=== PATIENT | female | born 1970 | race Caucasian/White ===

== ENCOUNTER 2021-04-14 04:17 | Emergency (ER) | payer BC ==
--- NOTE | 2021-04-14 04:43 | ERPHSYRPT ---
- History of Present Illness Time Seen by Provider: 04/14/21 04:42 Source: patient Exam Limitations: no limitations Physician History: The patient is a 51-year-old female the past medical tree significant for hypertension presents with a chief complaint of syncope. Onset reportedly was just prior to arrival to the emergency department. She reportedly is visiting from out of [facility], specifically [place], and is taking care of her mother who was just discharged from the hospital after being admitted for bowel obstruction. She reportedly was awoke abruptly tonight to help her mother go to the bathroom. She states that when she stood up out of bed she felt "hot" and as if it was over 100 degrees and then briefly lost consciousness. She came to and when she did she heard feeling of her screaming and she tried to stand up and briefly lost consciousness again. She is currently A&O x3 and just complains of a minor headache, specifically with pain behind the orbits. She also complained of some nausea. She denies any injury from the fall, chest pain, shortness of breath, history of DVT or PE, or any recent immobilization fever chills and she is not concerned for a COVID-19 infection. There is no report of vomiting or diarrhea. She contemplated whether to undergo work-up to include a head CT which I recommended to rule out intracranial hemorrhage/subarachnoid hemorrhage given that she is out of network and did not want to pay [id number] for ED bill but eventually decided to go forward with her work-up. Timing/Duration: today Associated Symptoms: nausea, syncope, No vomiting, No abdominal pain, No short ness of breath, No diaphoresis, No cough, No chest pain, No fever, No loss of appetite, No seizure, No weakness Allergies/Adverse Reactions: tramadol [From [facility]] Adverse Reaction (Verified 04/14/21 04:27) Home Medications: Lisinopril 10 mg [Zestril 10 MG] 10 mg PO DAILY 04/14/21 [History] - Review of Systems Constitutional: No Fever, No Chills Abdominal/Gastrointestinal: Nausea, No Vomiting, No Constipation Genitourinary Symptoms: No Dysuria, No Frequency, No Hematuria Neurological: Headache Psychological: No Symptoms Endocrine: No Symptoms All Other Systems: Reviewed and Negative - Nursing Vital Signs Nursing Vital Signs: Initial Vital Signs Temperature 98.1 F 04/14/21 04:17 Pulse Rate 94 H 04/14/21 04:17 Respiratory Rate 18 04/14/21 04:17 Blood Pressure 118/84 04/14/21 04:17 O2 Sat by Pulse Oximetry 99 04/14/21 04:17 Pain Scale Pain Intensity 1 - Physical Exam General Appearance: no apparent distress, alert Eye Exam: PERRL/EOMI, eyes nml inspection, No scleral icterus, No pale conjunctivae, No EOM palsy/anisocoria Ears, Nose, Throat Exam: normal ENT inspection, other (No evidence of tongue trauma) Neck Exam: normal inspection, non-tender, supple Respiratory Exam: normal breath sounds, lungs clear, airway intact, No chest tenderness, No respiratory distress, No diminished breath sounds, No accessory muscle use Cardiovascular Exam: regular rate/rhythm, normal heart sounds, normal peripheral pulses, capillary refill <2 sec, No murmur, No friction rub, No gallop, No edema Gastrointestinal/Abdomen Exam: soft, No tenderness, No distention, No mass, No guarding Pelvic Exam: not done Rectal Exam: deferred Back Exam: normal inspection Extremity Exam: normal inspection, No pedal edema, No tenderness Neurologic Exam: alert, oriented x 3, cooperative, normal mood/affect Skin Exam: normal color, warm, dry, No rash, No petechiae, No jaundice SpO2 Interpretation: normal O2 Delivery: Room Air - Course Nursing assessment & vital signs reviewed: Yes EKG Interpreted by Me: RATE, NORMAL AXIS, NORMAL INTERVALS, NORMAL QRS, Other (No evidence of acute myocardial ischemia or injury pattern. No evidence of preexcitation, Brugada, WPW or HOCM) - Radiology Exams Chest X-ray Interpretation: Interpreted by me, Reviewed by me, Negative (No evidence of acute cardiopulmonary process. Currently waiting formal radiology review.) - CT Exams Head CT Interpretation: Negative, Tele-radiologist Report Ordered Tests: Active Orders 24 hr Category Date Time Status EKG-ER Only STAT Care 04/14/21 04:48 Active IV Insertion STAT Care 04/14/21 04:48 Active CHEST 2 VIEWS (PA AND LAT) Stat Exams 04/14/21 06:07 Taken HEAD WITHOUT CONTRAST [CT] Stat Exams 04/14/21 04:49 Taken BMP Stat Lab 04/14/21 05:10 Completed CBC W DIFF Stat Lab 04/14/21 05:10 Completed TROPONIN Q3H Lab 04/14/21 05:10 Completed TROPONIN Q3H Lab 04/14/21 08:00 Ordered TROPONIN Q3H Lab 04/14/21 11:00 Ordered TROPONIN Q3H Lab 04/14/21 14:00 Ordered TROPONIN Q3H Lab 04/14/21 17:00 Ordered UA W/RFX UR CULTURE Stat Lab 04/14/21 04:48 Ordered Lab/Rad Data: Laboratory Result Diagrams 04/14/21 05:10 04/14/21 05:10 Laboratory Results 04/14/21 04/14/21 04/14/21 Range/Units 05:10 05:10 05:10 WBC 7.4 (4.0-10.5) K/mm3 RBC 4.52 (4.1-5.4) M/mm3 Hgb 13.6 (12.0-16.0) gm/dl Hct 42.4 (35-47) % MCV 93.8 (78-100) fl MCH 30.1 (26-32) pg MCHC 32.1 (32-36) g/dl RDW 13.3 (11.5-14.0) % Plt Count 302 (150-450) K/mm3 MPV 9.1 (7.5-11.0) fl Gran % 57.6 (36.0-66.0) % Eos # (Auto) 0.08 (0-0.5) Absolute Lymphs (auto) 2.44 (1.0-4.6) Absolute Monos (auto) 0.57 (0.0-1.3) Lymphocytes % 33.1 (24.0-44.0) % Monocytes % 7.7 (0.0-12.0) % Eosinophils % 1.1 (0.00-5.0) % Basophils % 0.5 (0.0-0.4) % Absolute Granulocytes 4.24 (1.4-6.9) Basophils # 0.04 (0-0.4) Sodium 138 (137-145) mmol/L Potassium 4.0 (3.5-5.1) mmol/L Chloride 100 (98-107) mmol/L Carbon Dioxide 28 (22-30) mmol/L Anion Gap 13.4 (5-15) MEQ/L BUN 9 (7-17) mg/dL Creatinine 0.83 (0.52-1.04) mg/dL Estimated GFR > 60.0 ML/MIN Glucose 106 (74-106) mg/dL Calcium 9.2 (8.4-10.2) mg/dL Troponin I < 0.012 (0.000-0.034) ng/mL - Progress Progress: unchanged Progress Note: 04/14/21 05:05 Nontoxic in appearance. The patient's had a minor headache with some nausea in the context of syncope raises the question whether or not she has an intercranial hemorrhage and therefore I will obtain a head CT to eval specifically for subarachnoid hemorrhage which I have a low suspicion for at this time. Given that her symptoms started less than 6 hours of her head CT is within normal limits this essentially rules this out and she would not need LP. Obtain some generalized labs to include CBC, BMP, troponin and her EKG showed no evidence of acute myocardial ischemia injury pattern or infarct pattern and there was no evidence of preexcitation, prolonged QT, Brugada, WPW and my suspicion for arrhythmia is low at this time. I have a feeling her work-up will be negative or relatively benign and her syncope is likely vasovagal given that this occurred when she stood up abruptly after being awoke from sleeping. If this is the case, she can be discharged home to follow-up with her PCP as needed. 04/14/21 06:19 Reviewed the patient's head CT and did not note any acute neurocranial pathology. Currently awaiting formal radiology review. Counseled pt/family regarding: lab results, diagnosis, rad results - Departure Departure Disposition: Home Clinical Impression: Vasovagal syncope Condition: Good Critical Care Time: No Referrals: DOCTOR,NO FAMILY [Primary Care Provider] - Follow up/PCP as directed Instructions: Syncope (Fainting) (DC)
[2021-04-14 05:18] LABS: Absolute Neutrophil Ct (ANC) 4.24 (1.4-6.9); BASOPHIL % 0.5 % (0.0-0.4); Basophil (Absolute #) 0.04 (0-0.4); Eosinophil % 1.1 % (0.00-5.0); Eosinophil (Absolute #) 0.08 (0-0.5); Hematocrit 42.4 % (35-47); Hemoglobin 13.6 gm/dl (12.0-16.0); Lymphocyte (Absolute #) 2.44 (1.0-4.6); Lymphocytes % 33.1 % (24.0-44.0); Mean Cell Volume 93.8 fl (78-100); Mean Corpuscular Hemoglobin 30.1 pg (26-32); Mean Corpuscular Hgb Concent. 32.1 g/dl (32-36); Mean Platelet Volume 9.1 fl (7.5-11.0); Monocyte (Absolute #) 0.57 (0.0-1.3); Monocytes % 7.7 % (0.0-12.0); Neutrophil % 57.6 % (36.0-66.0); Platelet Count 302 K/mm3 (150-450); Red Blood Count 4.52 M/mm3 (4.1-5.4); Red Cell Distribution Width 13.3 % (11.5-14.0); White Blood Count 7.4 K/mm3 (4.0-10.5)
[2021-04-14 05:24] LABS: ANION GAP 13.4 MEQ/L (5-15); BLOOD UREA NITROGEN 9 mg/dL (7-17); CHLORIDE 100 mmol/L (98-107); Calcium 9.2 mg/dL (8.4-10.2); Carbon Dioxide 28 mmol/L (22-30); Creatinine 1 0.83 mg/dL (0.52-1.04); EST GLOMERULAR FILTRATION RATE > 60.0 ML/MIN; Glucose 106 mg/dL (74-106); SODIUM 138 mmol/L (137-145)
[2021-04-14 06:31] VITALS: BP 97/55; PULSE 88; O2SAT 97
--- NOTE | 2021-04-14 08:54 | XRAY ---
Indication: Syncope. Headache. Multiple contiguous axial images obtained through the head without contrast. Comparison: None Normal appearing brain parenchyma, ventricles, and bony calvarium. Visualized paranasal sinuses and mastoid air cells are clear. Impression: Normal CT head without contrast exam. Comment: Preliminary interpretation made by [facility]. No critical discrepancy.
--- NOTE | 2021-04-14 08:54 | XRAY ---
Indication: Syncope. Comparison: None PA/lateral chest demonstrates normal heart, lungs, and bony thorax.
== END 2021-04-14 06:41 | disposition home or self-care (01) ==
LOC: ED 04:17
DX: R55 Syncope and collapse (principal); R11.0 Nausea; R51.9 Headache, unspecified
CPT/HCPCS: 36000; 36415; 70450; 71046; 80048; 84484; 85025; 93005; 99284